=== PATIENT | male | born 1995 | race Caucasian/White ===

== ENCOUNTER 2019-03-27 11:51 | Emergency (ER) | payer BC ==
[2019-03-27] MEDS: Diphtheria,Pertussis(Acell),Tetanus Vaccine 0.5 ML SDV inactive IM ONE (12:20)
--- NOTE | 2019-03-28 09:01 | ER ---
REASON FOR EMERGENCY ROOM VISIT: Puncture wound to right foot. HISTORY: This 23-year-old was deer hunting yesterday. He helped them field dress a deer, and while they were loading it into a pickup, they lost their grasp of the deer, and a jagged piece of bone from the deer stabbed the dorsum of his right foot. He had minimal bleeding from this. Both he and his mother are uncertain as to when his last tetanus was administered, and that is their main concern. PAST MEDICAL HISTORY: Unremarkable. MEDICATIONS: None. PHYSICAL EXAMINATION: He has a 1 cm, somewhat irregular laceration through the dermis of the skin on the dorsum of the right foot. It appears clean, but it has been open for over 24 hours. There is no bleeding. It is superficial, extending just below the level of the dermis. There is minimal swelling around this. There is no erythema. Distal neurovascular status is normal. No evidence of extensor tendon injury. IMPRESSION: Puncture wound as described above. PLAN: We went ahead and gave him a tetanus booster. I feel that probably antibiotics would not be indicated, provided they can keep it clean with soap and water, and I instructed them on the care of this. It should heal up nicely. I do not think sutures would be indicated here because it has been open for so long. They understand and agree with this plan. All questions were answered. JAKUB /[id number]
== END 2019-03-27 12:28 | disposition home or self-care (01) ==
LOC: LB.ED 11:51
DX: S91.331A Puncture wound without foreign body, right foot, initial encounter (principal); S91.311A Laceration without foreign body, right foot, initial encounter; Z23 Encounter for immunization; W22.8XXA Striking against or struck by other objects, initial encounter
CPT/HCPCS: 90471; 90715; 99282-25